=== PATIENT | female | born 1950 | race Native Hawaiian/Other Pacific Islander ===

== ENCOUNTER 2022-03-03 23:05 | Emergency (ER) | payer OTHER ==
[~2022-03-03] VITALS: Ht 180.3 cm; Wt 79.4 kg
[~2022-03-03 23:05] MED LIST: NITROFURANTOIN100 MG PO
[2022-03-03] MEDS ORDERED: LIPITOR40 MG PO (23:37)
[2022-03-03] MEDS ORDERED: CHLORTHALID25 MG PO (23:37)
[2022-03-03] MEDS ORDERED: FLUOXETINE40 MG PO (23:38)
[2022-03-03] MEDS ORDERED: DULOXETINE HCL30 MG PO (23:38)
[2022-03-03 23:39] LABS: PLATELET COUNT 246 K/uL (152-353)
[2022-03-03] MEDS ORDERED: NITROFURANTOIN100 M1 PO (23:39)
[2022-03-03] MEDS ORDERED: PANTOPRAZOLE SO40 M1 PO (23:39)
[2022-03-03] MEDS ORDERED: POT CHLORIDE10 ME1 PO (23:40)
[2022-03-03] MEDS ORDERED: HALO5TAB10 PO (23:40)
[2022-03-04 00:12] VITALS: BP 132/78; TEMP 97.8
[2022-03-04] MEDS ORDERED: ASCO500T18 PO (10:43)
[2022-03-04] MEDS ORDERED: ASPI325T40 PO (10:44)
[2022-03-04] MEDS ORDERED: ATIVAN2 MG PO (10:45)
[2022-03-04] MEDS ORDERED: LIPITOR40 MG PO (10:46)
[2022-03-04] MEDS ORDERED: CALCIUM600 M1 PO (10:55)
[2022-03-04] MEDS ORDERED: AZEL137S NAS (10:55)
[2022-03-04] MEDS ORDERED: DQZATE100 MG PO (10:56)
[2022-03-04] MEDS ORDERED: CHLORTHALID25 MG PO (10:56)
[2022-03-04] MEDS ORDERED: RESTASIS0.05 % OPTH (10:57)
[2022-03-04] MEDS ORDERED: DULO30CA PO (10:58)
[2022-03-04] MEDS ORDERED: FLUOXETINE40 MG PO (10:59)
[2022-03-04] MEDS ORDERED: IRON325 MG PO (10:59)
[2022-03-04] MEDS ORDERED: FLUT44AE INH (11:00)
[2022-03-04] MEDS ORDERED: HALO5TAB10 PO (11:01)
[2022-03-04] MEDS ORDERED: PANTOPRAZOLE 40MG TA PO (11:04)
[2022-03-04] MEDS ORDERED: REMERON SOLTAB15 MG PO (11:04)
[2022-03-04] MEDS ORDERED: KLOR-CON M1010 MEQ PO (11:04)
[2022-03-04] MEDS ORDERED: RISP0.5T2 PO (11:05)
[2022-03-04] MEDS ORDERED: TYLENOL325 MG PO (11:07)
== END 2022-03-04 00:12 | disposition other institution (70) ==
LOC: ED 23:05
PROVIDERS: Internal Medicine
DX: F41.8 Other specified anxiety disorders (principal); Z00.8 Encounter for other general examination; Z86.73 Personal history of transient ischemic attack (TIA), and cerebral infarction without residual deficits; Z11.52 Encounter for screening for COVID-19
CPT/HCPCS: 36415; 80053; 85027; 87635; 93005; 99283; U0003